=== PATIENT | male | born 1985 | race Caucasian/White ===

== ENCOUNTER 2018-03-29 15:56 | Emergency (ER) | payer OTHER, SELFPAY ==
[2018-03-29 15:58] VITALS: BP 106/67; PULSE 66; RESP 14; TEMP 36.3; O2SAT 97; BMI 22.4
--- NOTE | 2018-03-29 16:08 | RAD_ITS ---
STUDY: X-RAY - RIGHT ANKLE REASON FOR EXAM: Male, 33 years old. Trauma TECHNIQUE: 3 view(s) of the ankle. COMPARISON: None. FINDINGS: Normal visualized distal tibia and fibula. Normal medial and lateral malleoli. Normal tibiotalar articulation and ankle mortise. There is a tiny plantar aspect calcaneal spur. The visualized subtalar, talonavicular, calcaneocuboid and tarsal articulations are normal. There is no demonstrated fracture. There is soft tissue swelling over the lateral malleolus. RAD/Ankle min 3 Views IMPRESSION: There is no evidence of fracture or dislocation. There is soft tissue swelling over the lateral malleolus. There is a tiny plantar aspect calcaneal spur. Electronically Signed: Fredy Fitzgerald MD at 16:49 EDT , Service support ,
--- NOTE | 2018-03-29 16:09 | ED.VISSUMM ---
- ER Visit Summary Date of Service: 03/29/18 Chief Complaint: Right ankle injury History of Present Illness: The patient is a 33 M inversion injury right ankle at 130pm. Missed one step going down carrying laundry basket. Fell down, no head injuries. Able to ambulate with mild limping. No history of gastric ulcers or kidney injuries. No medications taken. No history of fractures. No paresthesias. Physical Examination: General: Alert and oriented ?3, no acute distress HEENT: Normocephalic, atraumatic. Moist mucosa membranes Neck: supple, nontender. Cardiovascular: Regular rate and rhythm, no murmurs Respiratory: Normal breath sounds, symmetric, no distress Abdomen: Soft, nontender, nondistended Extremities: Right lower extremity: No knee tenderness. No medial mild tenderness patient given swelling of the malleolus laterally with tenderness at the ATFL. Minimal malleolar tenderness laterally. No midfoot or proximal fifth base tenderness. Skin intact. Neurovascular intact. Neuro: no focal neurological deficits. Test Results: Right ankle x-ray: No fracture or dislocation. Emergency Department Course and Treatment: Ice was placed. X-ray reviewed myself shows no fracture dislocation. Patient started on Motrin. Discussed rice therapy. Aircast provided. Declined crutches. Discussed continue Motrin [id number] next 2 days. Follow-up with PCP as an outpatient. All questions were answered. Treatment Plan: [] Disposition: Discharge Impression: Right ankle sprain This note was generated with [employer] dictation software. It may contain incorrect words, spelling, and punctuation that were not noted in review of the chart prior to signing ED Disposition - Plan for ED Patient: Disposition: Home or Assisted Living Chief Complaint: Lower Extremity Injury Diagnosis: Moderate right ankle sprain Instructions: ED Sprain Ankle W X Ray Prescriptions: Ibuprofen 600 mg PO 4X/DAY PRN #20 tablet PRN Reason: Pain Referrals: Care Physician,No Primary [Primary Care Provider] - Vladimir Fletcher MD [STAFF PHYSICIAN] - 1 Week
[2018-03-29] MEDS: Ibuprofen 600 MG Tablet PO (16:37)
[2018-03-29 16:42] VITALS: BP 100/74; PULSE 66; RESP 17; O2SAT 98
== END 2018-03-29 17:06 | disposition home or self-care (01) ==
LOC: ED 17:00
PROVIDERS: Emergency Provider Emergency Medicine
DX: S93.401A Sprain of unspecified ligament of right ankle, initial encounter (principal); W10.9XXA Fall (on) (from) unspecified stairs and steps, initial encounter; Y93.9 Activity, unspecified; Y92.009 Unspecified place in unspecified non-institutional (private) residence as the place of occurrence of the external cause; Y99.9 Unspecified external cause status; Z72.0 Tobacco use
CPT/HCPCS: 73610; 99283

== ENCOUNTER 2024-02-10 09:45 | Emergency (ER) | payer SELFPAY ==
[2024-02-10 09:45] VITALS: BP 134/96; PULSE 94; RESP 17; TEMP 35.9; O2SAT 98; BMI 26.7
[2024-02-10 10:53] LABS: Absolute Lymphocyte Count 1.38 X10^3/uL (0.83-4.51); Absolute Neutrophil Count 11.5 X10^3/uL (2.0-7.7); Basophil# 0.07 X10^3/uL; Basophil% 0.5 % (0-1); Eosinophil# 0.02 X10^3/uL; Eosinophils% 0.1 % (0-5); Hematocrit 40.9 % (40-54); Lymphocyte # 1.38 X10^3/ul (0.83-4.51); Lymphocyte % 9.9 % (19-41); Mean Corp Hgb Conc 34.2 g/dL (32-36); Mean Corpuscular Hgb 32.3 pg (27.0-32.0); Mean Corpuscular Volume 94.5 fL (80-94); Mean Platelet Vol. 9.3 fl (6.2-12.0); Monocyte# 0.94 X10^3/uL; Monocyte% 6.7 % (0-10); NRBC Flagged by Analyzer 0 % (0-5); Neutrophil # 11.51 X10^3/uL (2.7-7.7); Neutrophil % 82.4 % (47-70); Platelet Count 294 K/mm3 (150-450); RBC Distribution Width CV 12.1 % (11.6-14.6); RBC Distribution Width SD 42.5 fl (35.1-43.9); Red Blood Count 4.33 M/mm3 (4.6-6.2)
[2024-02-10 10:53] LABS: ALB/GLOB Ratio 1.4 RATIO (0.9-2.4); AST(SGOT) 33 U/L (15-37); Alanine Aminotransfer ALT/SGPT 27 U/L (16-61); Albumin, Serum 4.5 g/dL (3.2-5.0); Alkaline Phosphatase 78 U/L (45-117); Anion Gap 4 (5-15); BUN 13 mg/dL (7-18); BUN/Creat Ratio 15.6 RATIO (10-20); Calcium,Total 9.6 mg/dL (8.5-10.1); Chloride 102 mmol/L (98-107); Creatinine, Serum 0.83 mg/dL (0.70-1.30); EST Glomerular Filtration Rate 109 mL/min (>60); Est Glom Filt Rate - Afr Amer 132 mL/min (>60); Estimated Creatinine Clearance 119.49 ml/min; Globulin 3.3 g/dL (2.2-4.2); Glucose 153 mg/dL (74-106); Lipase 41 U/L (13-75); Potassium 4.3 mmol/L (3.5-5.1); Protein, Total 7.8 g/dL (6.4-8.2); Sodium Level 132 mmol/L (136-145)
--- NOTE | 2024-02-10 11:06 | CT_ITS ---
STUDY: CT ABDOMEN AND PELVIS WITH CONTRAST REASON FOR EXAM: Male, 38 years old. Abdominal pain RADIATION DOSAGE (If Supplied By Facility): CTDIvol = ( 13.96 ) mGy, DLP = ( 782.82 ) mGycm TECHNIQUE: Transaxial images were obtained from the dome of the diaphragm to the symphysis pubis without oral contrast. IV 100mL Isovue-300 was administered. Sagittal and coronal images were reconstructed. Individualized dose optimization techniques were used for this CT. COMPARISON: Comparison is made with prior study January 22, 2016. FINDINGS: The visualized lung bases are unremarkable. The visualized portions of the heart are within normal limits. Normal liver. Normal gallbladder and extrahepatic biliary system. Normal spleen. Normal pancreas. Normal bilateral adrenal glands. Normal right kidney. Normal left kidney. Normal visualized stomach. There is diffuse circumferential wall thickening of the terminal ileum as well as the distal ileum with separation of bowel loops and increased markings in the surrounding peritoneal fat. Crohn''s disease should be ruled out. There are scattered colonic diverticula consistent with diverticulosis. The appendix is visualized and appears normal. Normal abdominal aorta. Normal inferior vena cava. There is a small retroperitoneal lymphadenopathy with enlarged nodes no greater than 10mm in the short axis diameter. Diffuse bladder wall thickening. Normal abdominal wall. Normal osseous structures. CT/Abdomen/Pelvis W IV Cont ONLY IMPRESSION: Inflammatory changes are seen in the terminal ileum and distal ileum as described. Inflammatory bowel disease should be ruled out. Diffuse bladder wall thickening. Electronically Signed: Tj Jordan MD at 12:22 EDT ,
--- NOTE | 2024-02-10 11:07 | ED.VIS.GI ---
HPI HPI - GI History of Present Illness Chief Complaint: Abd Pain Narrative Narrative: 38-year-old male presenting with abdominal pain. He points to the mid abdomen. He states it started at 6 AM this morning. He states that it seems to come in waves and will double up over and then will ease up. Patient denies vomiting. He denies constipation or diarrhea. He has not a fever. No history of abdominal surgeries. He states he is a drinker and drinks about 4-5 beers a night and heavier on the weekends. He is never had pancreatitis. [facility] Medical History Acid reflux Home Medications ?Medication ?Instructions ?Recorded ?Last Taken ?Type ibuprofen 600 mg tablet 600 mg PO 4X/DAY PRN Pain #20 tabs 03/29/18 Unknown Rx dicyclomine 20 mg tablet 20 mg PO TID PRN abdominal pain 02/10/24 Unknown Rx #20 tabs omeprazole 40 mg capsule,delayed 40 mg PO DAILY 02/10/24 Unknown History release ondansetron 4 mg disintegrating 4 mg PO Q8H PRN PRN Nausea #14 tabs 02/10/24 Unknown Rx tablet Allergy/AdvReac Type Severity Reaction Status Date / Time No Known Allergies Allergy Verified 03/29/18 16:01 Social History Smoking Status: Current every day smoker tobacco type: cigarettes ROS ROS ED Constitutional Constitutional ED: Denies chills, fever(s) or sweats Eyes Eyes: Denies blurry vision or change in vision ENT ENT ED: Denies ear pain or sore throat Cardiovascular Cardiovascular: Denies chest pain, palpitations or racing heartbeat Respiratory/Chest Respiratory/Chest: Denies cough, dyspnea or sputum Gastrointestinal Gastrointestinal: Reports abdominal pain; Denies constipation, diarrhea, nausea or vomiting Genitourinary Genitourinary ED: Denies dysuria, hematuria or urinary frequency Musculoskeletal Musculoskeletal: Denies arthralgias, myalgias or neck pain Integumentary Denies abscess, Abrasions or rash Neurologic Neurologic: Denies headache(s), paresthesias or weakness Psychiatric Psychiatric: Denies anxiety, depression, suicidal ideation or suicidal thoughts Endocrine Endocrinology: Denies polydipsia or polyuria EXAM Physical Exam Const Vital Signs: 02/10/24 09:45 02/10/24 11:45 02/10/24 13:01 Temperature 96.7 F L 98.7 F Temperature Source Temporal Pulse Rate 94 71 71 Respiratory Rate 17 16 16 Blood Pressure 134/96 H 128/59 H 128/59 H Blood Pressure Mean 108 82 82 Pulse Ox 98 99 99 Oxygen Delivery Method Room Air Room Air Positive well nourished General Appearance ED: NAD HEENT Reports moist mucous membranes normocephalic Eyes PERRL and EOMs intact bilaterally Resp normal respiratory effort Cardio regular rate and regular rhythm GI GI Narrative: Generalized mid abdominal tenderness. No peritoneal signs. Back/Spine no CVA tenderness Neuro CN's II-XII intact bilaterally and moves all extremities Sensorium / Orientation: alert Motor Exam: strength 5/5 throughout Psych mental status grossly normal MDM MDM MDM Narrative Medical decision making narrative: 38-year-old male presenting with abdominal pain that started this morning about 6 AM. He does not have a significant bowel history although he had colitis in the past. Patient declines any analgesia states that the weight. His house is sided at this point. Differential includes gastritis, GERD, colitis, diverticulitis, pancreatitis, dehydration, electrolyte abnormalities. CBC shows white blood cell count of 14.0. Hemoglobin 14. Platelets are 94. Renal function and electrolytes within normal limits. LFTs are normal. Lipase is normal. Urinalysis negative for infection. CT of the abdomen pelvis IV contrast interpreted as concerning for Crohn's Due to inflammatory changes in the distal ileum and terminal ileum. I discussed case with Dr. Ahmadi who did not feel this was an inflammatory bowel disease. He did feel it was likely more of a colitis. He did not recommend antibiotics. He recommended Bentyl and fluid hydration. Discussed this with the patient he is amenable to this plan. Discharged home with Zofran and Bentyl. Return precautions were discussed. Impression: 1. Colitis Lab Data Attestation: I reviewed the patient's lab results. Labs: Laboratory Results - last 24 hr 02/10/24 02/10/24 02/10/24 10:00 10:00 10:44 WBC Cancelled 14.0 H Corrected WBC Cancelled RBC Cancelled 4.33 L Hgb Cancelled 14.0 Hct Cancelled 40.9 MCV Cancelled 94.5 H MCH Cancelled 32.3 H MCHC Cancelled 34.2 RDW Std Deviation Cancelled 42.5 RDW Coeff of Dada Cancelled 12.1 Plt Count Cancelled 294 MPV Cancelled 9.3 Immature Gran % (Auto) Cancelled 0.400 Neut % (Auto) Cancelled 82.4 H Lymph % (Auto) Cancelled 9.[address] [place] % (Auto) Cancelled 6.7 Eos % (Auto) Cancelled 0.1 Baso % (Auto) Cancelled 0.5 Absolute Neuts (auto) Cancelled 11.5 H Absolute Lymphs (auto) Cancelled 1.38 Total Counted Cancelled Neutrophils % (Manual) Cancelled Band Neutrophils % Cancelled Lymphocytes % (Manual) Cancelled Monocytes % (Manual) Cancelled Eosinophils % (Manual) Cancelled Basophils % (Manual) Cancelled Metamyelocytes % Cancelled Myelocytes % Cancelled Promyelocytes % Cancelled Blast Cells % Cancelled Plasma Cell % (Manual) Cancelled Other Cells % Cancelled Nucleated RBC % Cancelled 0 Nucleated RBCs/100 WBC Cancelled Differential Comment Cancelled Diff Path Review Cancelled Hypersegmented Neuts Cancelled Atypical Lymphocytes Cancelled Reactive Lymphocytes Cancelled Smudge Cells Cancelled Toxic Granulation Cancelled Toxic Vacuolation Cancelled Dohle Bodies Cancelled Orville Rods Cancelled Platelet Estimate Cancelled Plt Morphology Comment Cancelled RBC Morphology Cancelled Cancelled Polychromasia Cancelled Hypochromasia Cancelled Basophilic Stippling Cancelled Anisocytosis Cancelled Microcytosis Cancelled Macrocytosis Cancelled Spherocytes Cancelled Sickle Cells Cancelled Target Cells Cancelled Tear Drop Cells Cancelled Ovalocytes Cancelled Stomatocytes Cancelled [place] Bodies Cancelled Cornish Cells Cancelled Bite Cells Cancelled Crenated Cell Cancelled Acanthocytes (Spur) Cancelled Rouleaux Cancelled Schistocytes Cancelled Sodium 132 L Potassium 4.3 Chloride 102 Carbon Dioxide 26.0 Anion Gap 4 L BUN 13 Creatinine 0.83 Estim Creat Clear Calc 119.49 Est GFR (MDRD) Af Amer 132 Est GFR (MDRD) Non-Af 109 BUN/Creatinine Ratio 15.6 Glucose 153 H Calcium 9.6 Total Bilirubin 0.60 AST 33 ALT 27 Alkaline Phosphatase 78 Total Protein 7.8 Albumin 4.5 Globulin 3.3 Albumin/Globulin Ratio 1.4 Lipase 41 Urine Color Urine Clarity Urine pH Ur Specific [place] Urine Protein Urine Glucose (UA) Urine Ketones Urine Occult Blood Urine Nitrite Urine Bilirubin Urine Urobilinogen Ur Leukocyte Esterase Urine RBC Urine WBC Ur Squamous Epith Cells Urine Bacteria Urine Mucus 02/10/24 11:18 WBC Corrected WBC RBC Hgb Hct MCV MCH MCHC RDW Std Deviation RDW Coeff of Dada Plt Count MPV Immature Gran % (Auto) Neut % (Auto) Lymph % (Auto) [place] % (Auto) Eos % (Auto) Baso % (Auto) Absolute Neuts (auto) Absolute Lymphs (auto) Total Counted Neutrophils % (Manual) Band Neutrophils % Lymphocytes % (Manual) Monocytes % (Manual) Eosinophils % (Manual) Basophils % (Manual) Metamyelocytes % Myelocytes % Promyelocytes % Blast Cells % Plasma Cell % (Manual) Other Cells % Nucleated RBC % Nucleated RBCs/100 WBC Differential Comment Diff Path Review Hypersegmented Neuts Atypical Lymphocytes Reactive Lymphocytes Smudge Cells Toxic Granulation Toxic Vacuolation Dohle Bodies [place] Rods Platelet Estimate Plt Morphology Comment RBC Morphology Polychromasia Hypochromasia Basophilic Stippling Anisocytosis Microcytosis Macrocytosis Spherocytes Sickle Cells Target Cells Tear Drop Cells Ovalocytes Stomatocytes [place] Bodies Jose Alberto Cells Bite Cells Crenated Cell Acanthocytes (Spur) Rouleaux Schistocytes Sodium Potassium Chloride Carbon Dioxide Anion Gap BUN Creatinine Estim Creat Clear Calc Est GFR (MDRD) Af Amer Est GFR (MDRD) Non-Af BUN/Creatinine Ratio Glucose Calcium Total Bilirubin AST ALT Alkaline Phosphatase Total Protein Albumin Globulin Albumin/Globulin Ratio Lipase Urine Color Yellow Urine Clarity Clear Urine pH 6.5 Ur Specific [place] 1.010 Urine Protein 15 H Urine Glucose (UA) Normal Urine Ketones 5 H Urine Occult Blood Negative Urine Nitrite Negative Urine Bilirubin Negative Urine Urobilinogen Normal Ur Leukocyte Esterase 25 H Urine RBC 0 SEEN Urine WBC 0-5 SEEN Ur Squamous Epith Cells 0-5 SEEN Urine Bacteria 1+ Urine Mucus 0 SEEN Radiography Diagnostic Testing: Clinical Impression(s) from Imaging Studies Abdomen/Pelvis CT 02/10/24 11:06 IMPRESSION: Inflammatory changes are seen in the terminal ileum and distal ileum as described. Inflammatory bowel disease should be ruled out. Diffuse bladder wall thickening. Electronically Signed: Tj Jordan MD at 12:22 EDT , Discharge Plan Triage Chief Complaint: Abd Pain ED Provider: Peter Hays Dx/Rx/DC Orders Instructions: ED Understanding Colitis Prescriptions: New dicyclomine 20 mg tablet 20 mg PO TID PRN (Reason: abdominal pain) Qty: 20 0RF ondansetron 4 mg tablet,disintegrating 4 mg PO Q8H PRN PRN (Reason: Nausea) Qty: 14 0RF No Action ibuprofen 600 MG tablet 600 mg PO 4X/DAY PRN (Reason: Pain) Qty: 20 0RF omeprazole 40 mg capsule,delayed release(DR/EC) 40 mg PO DAILY Primary Care Provider: Care Physician,No Primary Referrals: Care Physician,No Primary [Primary Care Provider] - Print Language: Cypriot Disposition Disposition: Home, Self Care Discharge Date/Time: 02/10/24 13:02
[2024-02-10 11:22] LABS: Mucous, Urine 0 SEEN /hpf (<or=2+); Red Blood Cells-Urine 0 SEEN /hpf (0-5)
[2024-02-10 11:25] LABS: Color, Urine Yellow (Yellow); Glucose, Dipstick Normal (Normal); Ketone-Dipstick 5 mg/dl (Negative); Leukocyte Esterase-Dipstick 25 /ul (Negative); Nitrite-Dipstick Negative (Negative); Occult Blood-Urine Negative /ul (Negative); Protein-Dipstick 15 mg/dl (Negative); Urine Bilirubin Dipstick Negative (Negative); Urine Clarity Clear (Clear); Urine Urobilinogen Normal (Normal); Urine pH 6.5 (5.0 - 8.0)
[2024-02-10 11:33] LABS: Bacteria 1+ /hpf (None Seen); Squamous Epithelial Cells - UA 0-5 SEEN /hpf (0-5); White Blood Cells 0-5 SEEN /hpf (0-5)
[2024-02-10 11:45] VITALS: BP 128/59; PULSE 71; RESP 16; O2SAT 99
[2024-02-10 13:01] VITALS: BP 128/59; PULSE 71; RESP 16; TEMP 37.1; O2SAT 99
== END 2024-02-10 13:02 | disposition home or self-care (01) ==
PROVIDERS: Emergency Provider Student in an Organized Health Care Education/Training Program; Visit Provider Student in an Organized Health Care Education/Training Program
DX: K52.9 Noninfective gastroenteritis and colitis, unspecified (principal); F17.210 Nicotine dependence, cigarettes, uncomplicated; K21.9 Gastro-esophageal reflux disease without esophagitis; Z79.899 Other long term (current) drug therapy
CPT/HCPCS: 74177; 80053; 81001; 83690; 85025; 99282; Q9967